=== PATIENT | female | born 1955 | race African-American/Black ===

== ENCOUNTER → 2017-05-05 | Outpatient (CLI) | payer OTHER | LOC: BC 10:15 | DX: Z12.31 Encounter for screening mammogram for malignant neoplasm of breast (principal) ==

== ENCOUNTER → 2018-06-26 | Outpatient (CLI) | payer OTHER | LOC: RAD 10:44 | DX: Z12.31 Encounter for screening mammogram for malignant neoplasm of breast (principal) ==

== ENCOUNTER → 2019-08-21 | Outpatient (CLI) | payer OTHER | LOC: RAD 10:31 | DX: Z12.31 Encounter for screening mammogram for malignant neoplasm of breast (principal) ==

== ENCOUNTER → 2020-08-25 | Outpatient (CLI) | payer OTHER | LOC: RAD 08:08 | DX: Z12.31 Encounter for screening mammogram for malignant neoplasm of breast (principal) ==

== ENCOUNTER → 2021-10-18 | Outpatient (CLI) | payer OTHER | LOC: BC 13:01 | PROVIDERS: ATTEND Family Medicine | DX: Z12.31 Encounter for screening mammogram for malignant neoplasm of breast (principal); N64.89 Other specified disorders of breast ==